=== PATIENT | male | born 1950 | race Caucasian/White ===

== ENCOUNTER 2016-03-29 05:21 | Inpatient (IN) | payer OTHER ==
[2016-03-05 10:09] VITALS: BMI 40.0
--- NOTE | 2016-03-05 10:50 | PAT Medication Instructions ---
Service Date Mar 05, 2016. Current Home Medication List Aspirin (Aspirin), 325 MG PO 2XWEEK Krill Oil (Megared [place]-3 Krill Oil 500 mg), 1 TAB PO QAM [Carvedilol], 1 TAB PO BID [Lisinopril], 1 TAB PO BID [Sinutab], 1 TAB PO PRN Medication Instructions For Your Scheduled Surgery - Instructions to be given by surgeon: Aspirin (Aspirin), 325 MG PO 2XWEEK - Hold the following medications 2 weeks prior to surgery: Krill Oil (Megared [place]-3 Krill Oil 500 mg), 1 TAB PO QAM - Hold the following medications 24 hours prior to surgery: [Lisinopril], 1 TAB PO BID - Hold the following medications the morning of surgery: [Sinutab], 1 TAB PO PRN - Take the following medications the morning of surgery with a sip of water OTHERWISE NOTHING TO EAT OR DRINK AFTER MIDNIGHT: [Carvedilol], 1 TAB PO BID - Take the following medications as scheduled the night before surgery: [Carvedilol], 1 TAB PO BID If you have any questions please call us at [phone] (Kayla Soriano PA-C ) or [phone] or [phone]
--- NOTE | 2016-03-05 11:22 | DIAGNOSTIC IMAGING REPORT ---
TWO VIEW CHEST CLINICAL HISTORY: Preoperative examination. FINDINGS: PA and lateral chest radiographs are obtained. No prior studies are available for comparison at the time of dictation. The heart is top normal for projection. The mediastinal contour is within normal limits. There is mild bibasilar atelectasis. The lungs and pleural spaces are otherwise clear. There is no pneumothorax. The skeletal structures appear osteopenic. Degenerative change is noted throughout the thoracic spine. IMPRESSION: No active disease in the chest. Electronically signed by: Dexter Rosales M.D. 03/05/2016 11:21 AM
[2016-03-05 12:16] LABS: BASO % 0.7 %; BASO ABS # 0.04 K/uL (0-0.2); COMPLETE YES; EOS % 10.7 %; IG% 0.2 %; LYMPH % 35.1 %; LYMPH ABS # 2.16 K/uL (1.2-3.4); MEAN CELL VOLUME 86.4 fL (80-100); MEAN CORPUSCULAR HEMOGLOBIN 29.5 pg (25-34); MEAN CORPUSCULAR HGB CONC 34.1 g/dl (32-36); MEAN PLATELET VOLUME 10.2 fL (7.4-10.4); MONO % 11.9 %; NEUT % 41.4 %; PLATELET COUNT 196 K/uL (130-400); RED BLOOD COUNT 5.09 M/uL (4.7-6.1); WHITE BLOOD COUNT 6.15 K/uL (4.8-10.8)
[2016-03-05 12:16] LABS: URINE APPEARANCE CLEAR (CLEAR); URINE BILIRUBIN NEG (NEG); URINE COLOR YELLOW; URINE NITRITE NEG (NEG); URINE PH 7.5 (4.5-7.5); URINE SPECIFIC GRAVITY 1.022 (1.000-1.030); UROBILINOGEN NEG (NEG)
[2016-03-05 12:46] LABS: MANUAL MICROSCOPIC REQUIRED? NO; REVIEW REQ? NO
[2016-03-05 12:50] LABS: BUN/CREATININE RATIO 15.7 (10-20); CREATININE 0.85 mg/dl (0.60-1.40)
[2016-03-29] VITALS (9 sets, daily range): BP systolic 138–166; BP diastolic 68–95; PULSE 72–98; TEMP 36.4–36.8; O2SAT 94–97; Ht 180.3 cm; Wt 132.4 kg
[~2016-03-29] VITALS: Ht 180.3 cm; Wt 132.4 kg
[~2016-03-29 05:21] MED LIST: ASPI325T45 PO; CARVEDILOL PO; KRIL1CAP18 PO; LISIPOW PO; SINUTAB PO
[2016-03-29] MEDS ORDERED: DEXT30TA7 PO (05:59)
[2016-03-29] MEDS ORDERED: LISI-787 PO (05:59)
[2016-03-29] MEDS ORDERED: CeleBREX 200 MG CAP PO SCH (06:00)
[2016-03-29] MEDS ORDERED: MULT-506 PO (06:00)
[2016-03-29] MEDS ORDERED: CALC500C70 PO (06:00)
[2016-03-29] MEDS ORDERED: PREGABALIN 75 MG CAP PO SCH (06:00)
[2016-03-29] MEDS ORDERED: LACTATED RINGER'S 1000ML IV SCH (06:00)
[2016-03-29] MEDS ORDERED: CEFAZOLIN 3000 MG/65 ML D5W 65 ML IV SCH (06:00)
[2016-03-29] MEDS ORDERED: KETAMINE HCL INJ 50 MG/ML 10 ML VIAL ONE (06:47)
[2016-03-29] MEDS ORDERED: HYDROmorphone INJ 2 MG/ML SYR/VIAL ONE (06:47)
[2016-03-29] MEDS ORDERED: FENTANYL CITRATE INJ 50 MCG/1 ML 2 ML VIAL ONE (06:47)
[2016-03-29] MEDS ORDERED: MIDAZOLAM HCL 1 MG/ML 2ML VIAL ONE (06:47)
[2016-03-29] MEDS ORDERED: MoRPHine SULFATE 10 MG/ML CARP/VIAL IV PRN (07:15)
[2016-03-29] MEDS ORDERED: ATROPINE SULFATE 0.1 MG/ML 5ML SYR IV PRN (07:15)
[2016-03-29] MEDS ORDERED: ONDANSETRON INJ 2 MG/ML 2 ML VIAL IV PRN ×2 (07:15→10:45)
[2016-03-29] MEDS ORDERED: PHENYLEPHRINE 1% NA SPR 15 ML BTL ONE (07:15)
[2016-03-29] MEDS ORDERED: EpHEDrine SULFATE INJ 50 MG/ML AMP IV PRN (07:15)
[2016-03-29] MEDS ORDERED: FENTANYL CITRATE INJ 50 MCG/1 ML 2 ML VIAL IV PRN (07:15)
--- NOTE | 2016-03-29 07:35 | History and Physical ---
History & Physical Date Mar 29, 2016. Chief Complaint LBP and left leg pain History of Present Illness The patient is a 65 year old male with complaints of above who failed outpatient management. no R leg symptoms. MRI shows R L4-5 foraminal stenosis. no weakness. cleared by pcp for surgery Past Medical/Surgical History HTN AR OA prostate CA prostactectomy hernia repair hi chol obesity prior tobacco Additional History Hepatic Disease: No Endocrine Disorder: No Kidney Disease: No Hypertension: Yes Heart Disease: Yes Bleeding Tendencies: No Infectious Diseases: No Allergies Coded Allergies: No Known Allergies (Unverified , 03/29/16) Home Medications Scheduled Aspirin (Aspirin), 325 MG PO 2XWEEK Calcium/Vitamin D (Os-Yossi 500 Plus D), 1 TAB PO DAILY Krill Oil (Megared [place]-3 Krill Oil 500 mg), 1 TAB PO QAM Lisinopril/Hctz (Zestoretic 20MG/12.5MG), 1 TAB PO BID Multivitamin (Multivitamin), 1 TAB PO DAILY [Carvedilol], 1 TAB PO BID [Sinutab], 1 TAB PO PRN Scheduled PRN Dextromethorphan-Guaifenesin (Mucinex Dm), 1 TAB PO Q12 PRN for Cough Physical Examination Skin: warm/dry Eyes: normal inspection, sclerae normal ENT: normal ENT inspection Head: normocephalic, atraumatic Neck: supple, trachea midline Respiratory/Chest: lungs clear, no respiratory distress Cardiovascular: regular rate, rhythm Back: normal inspection Extremities: normal inspection, normal range of motion Neurologic/Psych: no motor/sensory deficits, alert, normal reflexes, oriented x 3 Diagnosis L4-5 stenosis Plan of Treatment L4-5 decompression/fusion
[2016-03-29] MEDS ORDERED: BUPIVACAINE/EPINEPHRINE 0.5% MPF 1:200,000 30 ML VIAL INJ ONE (08:46)
[2016-03-29] MEDS ORDERED: LIDOCAINE HCL 2% 2 ML VIAL (20MG/ML) ONE (08:59)
[2016-03-29] MEDS ORDERED: DEXAMETHASONE SOD INJ 4 MG/ML VIAL ONE (08:59)
[2016-03-29] MEDS ORDERED: ONDANSETRON INJ 2 MG/ML 2 ML VIAL ONE (08:59)
[2016-03-29] MEDS ORDERED: PROPOFOL IV EMULSION 10 MG/ML 20 ML VIAL IV ONE (08:59)
[2016-03-29] MEDS ORDERED: NEOSTIGMINE METHYLSULFATE 1 MG/ML 10ML VIAL ONE (08:59)
[2016-03-29] MEDS ORDERED: GLYCOPYRROLATE INJ 0.2 MG/ML VIAL ONE (08:59)
[2016-03-29] MEDS ORDERED: ROCURONIUM BROMIDE 10 MG/ML 5 ML VIAL ONE (08:59)
[2016-03-29] MEDS ORDERED: VASOPRESSIN 20 UNIT/ML VIAL ONE (08:59)
[2016-03-29] MEDS ORDERED: PHENYLEPHRINE 100MCG/ML 5ML SYR ONE (08:59)
[2016-03-29] MEDS ORDERED: EpHEDrine SULFATE 50MG/5ML SYR ONE (08:59)
[2016-03-29] MEDS ORDERED: BACITRACIN 50000 UNIT VIAL IR ONE (09:42)
[2016-03-29] MEDS ORDERED: DURASEAL DURAL SEALANT 5ML TOP ONE (09:42)
[2016-03-29] MEDS ORDERED: THROMBIN 5000 UNITS KIT TOP ONE (09:55)
[2016-03-29] MEDS ORDERED: FLOSEAL HEMOSTATIC MATRIX 10ML TOP ONE (09:55)
[2016-03-29] MEDS ORDERED: THROMBIN FOR SOLN 20000 UNIT KIT TOP ONE (09:55)
[2016-03-29] MEDS ORDERED: OXYC-57 PO (10:04)
--- NOTE | 2016-03-29 10:05 | Discharge Instructions ---
Discharge Instructions Admission Reason for Admission: Lumbar Spinal Stenosis Discharge Discharge Diagnosis / Problem: Lumbar Stenosis Discharge Goals Goal(s): Decrease discomfort, Improve function, Increase independence Activity Recommendations Activity Limitations: as noted below Lifting Limitations: none Exercise/Sports Limitations: until after follow-up appointment May Resume Sexual Activity: after follow-up appointment Shower/Bathe: may shower/bathe in 3 days . Instructions / Follow-Up Instructions / Follow-Up ACTIVITY RECOMMENDATIONS: SELF CARE INSTRUCTIONS AFTER THORACIC/LUMBAR FUSIONS 1. You may walk to your tolerance. It is good exercise for your legs and back. Expect some back and intermittent leg aches and pains. 2. You may perform "counter-top" level activities (make a sandwich, chantell with a project, etc.). 3. No bending or lifting of more than 10 pounds or back twisting of any nature (roll like a log when turning in bed). 4. You may ride in a car for 20-30 minutes at a time. No driving until after your first visit with your doctor. 5. Frequent changes of position and restricting sitting to 30 minutes at a time will help limit the amount of back spasms and stiffness you may experience. 6. You may discontinue the use of ambulatory aids (cane, crutches, etc.) once your strength and confidence allow. 7. You may fiber optic central office installer the shower and let water strike your incision when you arrive home at least once daily. Do not take a tub bath, sit in a hot tub or go into a swimming pool until after your first recheck in the office. SPECIAL CARE INSTRUCTIONS: VERY IMPORTANT TO READ AND REVIEW A. Your surgical incision has been closed with a cosmetic suture under the skin that will dissolve in about 6 weeks. In 14 days, you can use a pair of clean scissors and cut the suture that is left outside of the skin at the ends of your incision. 1. The small skin tapes can be removed 7 days after surgery if they have not fallen off by that point. 2. You may keep the wound open to air as much as possible to promote healing after post-op day number 5 unless told otherwise by your doctor. 3. If you think the wound looks like it is becoming infected (redness or worsening drainage) and/or you are experiencing fever, chill or worsening back pain and muscle spasms, contact the office so that we may evaluate you as soon as possible. B. Complications are uncommon, but please contact us if you have any signs or symptoms of: 1. wound infection (fever higher than 102.5 degrees F, redness, separation of wound, drainage, or increasing pain from the incision) 2. blood clots in legs (pain, swelling, redness and warmth in legs) 3. urinary tract infection (fever higher than 102.5 degrees F, burning upon urination or increased frequency of urination) 4. nerve problems (inability to walk on your toes or heels, numbness, loss of bowel or bladder control) 5. any other symptoms that concern you C. Please call the office at if you have any concerns or questions about your operation or recovery. D. No smoking! Smoking drastically decreases the chance of a solid fusion. E. Do not take any anti-inflammatory medications (Indocin, Advil, Motrin, Aspirin, Naprosyn, etc.) as these may inhibit the chance of a solid fusion. Tylenol is okay to take for pain. MANAGING PAIN AFTER SPINAL SURGERY 1. Narcotic medication is intended for short-term use and will be provided for surgical pain. Surgical pain usually lasts for a period of 4-6 weeks. Narcotic medication includes Percocet, Vicodin, Darvocet, Tylenol #3 or Lortab. 2. Longer-term pain is more appropriately treated with non-narcotic medication such as Tylenol ES. 3. Muscle spasm is not appropriately treated with narcotics. Muscle relaxers such as Soma, Flexeril or Skelaxin can be used along with Tylenol ES. 4. Remember that we all live with some "aches and pains". This is not unusual or uncommon after an injury or as we get older. a. Back pain is expected and may include muscle spasms for 4 to 6 weeks after surgery. The pain should gradually improve. If the pain worsens for no apparent reason, please contact the office. b. Intermittent leg pain may also be experienced and should not be concerned about unless it worsens for no apparent reason. If so, please contact the office. 5. We will provide appropriate medication within the normal guidelines of their prescribed use. We will also be very cautious and aware of potential abuse and extended duration of patients' medication needs. a. Pain medications are for your comfort and to assist with sleep and rest so that the tissue can heal. They are not provided in order to return to normal activity and should not be used through the day. To do so or worsening pain at night can result from ongoing tissue damage and development of tolerance to the prescribed medicine. 6. Please allow 2-3 days to process refills. Prescriptions will not be mailed but must be picked up at the office. FOLLOW UP VISIT: Keep your scheduled follow-up appointment. Any questions, please call the office at . Current Hospital Diet Patient's current hospital diet: Discharge Diet Recommended Diet: Regular Diet Procedures Procedures Performed: L4-L5 Decompression and Instrumented Fusion, Interbody Fusion with Application of Interbody Cage at L4-L5; Bone Marrow Aspirate with use of Arteriocyte Pending Studies Studies pending at discharge: no Medical Emergencies . Who to Call and When: Medical Emergencies: If at any time you feel your situation is an emergency, please call 911 immediately. . Non-Emergent Contact Non-Emergency issues call your: Surgeon Call Non-Emergent contact if: temperature is above 101, your pain is not controlled, your pain is worsening, your pain is unusual for you, your pain is concerning you, wound has increased drainage, wound has increased redness, wound has increased pain, you have any medication questions . "Provider Documentation" section prepared by Dixon Figueroa. VTE Core Measure Inpt VTE Proph given/why not?: Shawna Martin
--- NOTE | 2016-03-29 10:22 | DIAGNOSTIC IMAGING REPORT ---
INTRAOPERATIVE FLUOROSCOPIC IMAGES OF THE LUMBAR SPINE CLINICAL HISTORY: L4-L5 decompression and fusion. COMPARISON STUDY: No previous studies for comparison. Fluoroscopy time: 12 seconds. FINDINGS: These 2 fluoroscopic images demonstrate an L4-L5 discectomy with interbody spacer placement. There are bilateral pedicle screws at the L4 and L5 levels with interconnecting rods. IMPRESSION: Fluoroscopic images demonstrating an L4-L5 discectomy and bilateral pedicle screw fusion. Electronically signed by: Liam Godinez M.D. 03/29/2016 10:21 AM Dictated Date/Time: 03/29/2016 10:20 AM
[2016-03-29] MEDS ORDERED: SODIUM CHLORIDE 0.9% 1000ML 1,000 ML IV SCH (10:40)
--- NOTE | 2016-03-29 10:40 | [facility] Post Operative Brief Note ---
Immediate Operative Summary Operative Date Mar 29, 2016. Pre-Operative Diagnosis L4-L5 Lumbar Stenosis Post-Operative Diagnosis Same as preoperative Procedure(s) Performed L4-L5 Decompression and Instrumented Fusion, Interbody Fusion with Application of Interbody Cage at L4-L5; Bone Marrow Aspirate with use of Arteriocyte Surgeon Dr. John Wu Sole Ruffer Surgeon(s) Ollie Figueroa PA-C Estimated Blood Loss 350ml Findings dict Specimens None per surgeon
[2016-03-29] MEDS ORDERED: HYDROmorphone HCL 0.5MG/ML 50 ML CASSETTE ONE (10:44)
[2016-03-29] MEDS ORDERED: NALOXONE HCL 0.4 MG/1 ML VIAL/CARP IV PRN ×2 (10:45)
[2016-03-29] MEDS ORDERED: FAMOTIDINE 20 MG TAB PO PRN (10:45)
[2016-03-29] MEDS ORDERED: PROMETHAZINE HCL INJ 12.5 MG in SODIUM CHLORIDE 0.9% 50ML 50 ML IV PRN (10:45)
[2016-03-29] MEDS ORDERED: LORAZEPAM INJ 0.5 MG in SYRINGE 0 ML IV PRN (10:45)
[2016-03-29] MEDS ORDERED: METOCLOPRAMIDE HCL INJ 5 MG/ML 2 ML VIAL IV PRN (10:45)
[2016-03-29] MEDS ORDERED: ACETAMINOPHEN IV 100 ML IV PRN (10:45)
[2016-03-29] MEDS ORDERED: HYDROmorphone INJ 1 MG/ML SYR IV PRN (10:45)
[2016-03-29] MEDS ORDERED: MAGNESIUM HYDROXIDE SUSP 30 ML UDC PO PRN (10:45)
[2016-03-29] MEDS ORDERED: ALUMINUM/MAGNESIUM SUSP 30 ML UDC PO PRN (10:45)
[2016-03-29] MEDS ORDERED: hydrOXYzine HCL 25 MG TAB PO PRN (10:45)
[2016-03-29] MEDS ORDERED: LORAZEPAM 0.5 MG TAB PO PRN (10:45)
[2016-03-29] MEDS ORDERED: SOD PHOSPHATE/SOD BIPHOSPHATE ENEMA 132 ML BTL PR PRN (10:45)
[2016-03-29] MEDS ORDERED: BISACODYL 10 MG SUPP PR PRN (10:45)
--- NOTE | 2016-03-29 11:05 | Anesthesiology Progress Note ---
Anesthesia Post Op Note Date & Time Mar 29, 2016 at 11:04 Vital Signs Pain Intensity: 3 Vital Signs Past 12 Hours Date Time Temp Pulse Resp B/P Pulse Ox O2 Delivery O2 Flow Rate FiO2 03/29/16 10:55 71 16 133/87 97 Nasal Cannula 4 03/29/16 10:45 68 16 155/79 97 Nasal Cannula 4 03/29/16 10:35 69 16 121/80 96 Mask 10 03/29/16 10:25 72 16 113/98 97 Mask 10 03/29/16 10:19 37.1 69 16 118/83 99 Mask 10 03/29/16 06:07 36.8 72 20 166/74 94 Room Air Notes Mental Status: alert / awake / arousable, participated in evaluation Pt Amnestic to Procedure: Yes Nausea / Vomiting: adequately controlled Pain: adequately controlled Airway Patency, RR, SpO2: stable & adequate BP & HR: stable & adequate Hydration State: stable & adequate Anesthetic Complications: no major complications apparent
[2016-03-29] MEDS ORDERED: LARYING-O-JET KIT (LTA) EXT ONE ×2 (11:13)
[2016-03-29] MEDS: LACTATED RINGER'S 1000ML 1,000 ML IV SCH (12:24)
[2016-03-29] MEDS ORDERED: PNEUMOCOCCAL POLYSACCHARIDES 25 MCG/0.5 ML VIAL/SYR IM. ONE (15:00)
[2016-03-29] MEDS ORDERED: PNEUMOCOCCAL ADMINISTRATION CHARGE ONE (15:00)
[2016-03-29] MEDS: HYDROmorphone HCL 0.5MG/ML 50 ML CASSETTE IV PRN ×2 (15:03→23:01)
[2016-03-29] MEDS ORDERED: INFLUENZA VIRUS QUAD VACCINE 0.5 ML SYR IM. ONE (15:15)
[2016-03-29] MEDS ORDERED: INFLUENZA ADMINISTRATION CHARGE ONE (15:15)
[2016-03-29] MEDS: DEXAMETHASONE INJ 6 MG in SYRINGE 0 ML IV SCH (17:22)
[2016-03-29] MEDS: CEFAZOLIN IV 2,000 MG in DEXTROSE 5% 50ML 50 ML IV SCH (17:22)
[2016-03-29] MEDS ORDERED: LISINOPRIL/HCTZ 20/12.5MG TAB PO SCH (21:00)
[2016-03-29] MEDS ORDERED: CARVEDILOL 25 MG TAB PO SCH (21:00)
[2016-03-29] MEDS: DOCUSATE SODIUM/SENNA 50/8.6MG TAB PO SCH (21:00)
[2016-03-30] VITALS (8 sets, daily range): BP systolic 116–168; BP diastolic 62–75; PULSE 79–91; TEMP 36.5–37.2; O2SAT 92–96
[2016-03-30] MEDS: CEFAZOLIN IV 2,000 MG in DEXTROSE 5% 50ML 50 ML IV SCH (00:13)
[2016-03-30] MEDS: DEXAMETHASONE INJ 6 MG in SYRINGE 0 ML IV SCH ×2 (00:14→07:46)
[2016-03-30] MEDS: LACTATED RINGER'S 1000ML 1,000 ML IV SCH (00:14)
[2016-03-30] MEDS ORDERED: DC PCA ONE (06:00)
[2016-03-30 06:11] LABS: COMPLETE YES; HEMATOCRIT 36.3 % (42-52); IG% 0.3 %; LYMPH % 6.3 %; LYMPH ABS # 1.28 K/uL (1.2-3.4); MEAN CELL VOLUME 84.4 fL (80-100); MEAN CORPUSCULAR HEMOGLOBIN 30.5 pg (25-34); MEAN CORPUSCULAR HGB CONC 36.1 g/dl (32-36); MEAN PLATELET VOLUME 10.4 fL (7.4-10.4); MONO % 5.7 %; NEUT % 87.7 %; PLATELET COUNT 175 K/uL (130-400)
[2016-03-30 06:42] LABS: BUN/CREATININE RATIO 14.9 (10-20); CALCIUM 8.5 mg/dl (8.5-10.1); CREATININE 0.87 mg/dl (0.60-1.40)
[2016-03-30] MEDS: OXYCODONE HCL IR 5 MG TAB (IMMEDIATE RELEASE) PO PRN ×3 (07:56→21:12)
[2016-03-30] MEDS ORDERED: NURSING VERBAL MED ORDER ONE (08:00)
--- NOTE | 2016-03-30 08:26 | Anesthesiology Progress Note ---
Anesthesia Post Op Note Date & Time Mar 30, 2016 at 08:25 Vital Signs Pain Intensity: 3.0 Vital Signs Past 12 Hours Date Time Temp Pulse Resp B/P Pulse Ox O2 Delivery O2 Flow Rate FiO2 03/30/16 08:17 96 Room Air 03/30/16 08:02 Room Air 03/30/16 07:40 36.8 84 20 138/64 96 Room Air 03/30/16 03:45 36.5 85 16 116/62 95 Room Air 03/30/16 00:30 Nasal Cannula 2.0 03/29/16 23:17 36.5 98 16 138/68 94 Nasal Cannula 2.0 Notes Mental Status: alert / awake / arousable, participated in evaluation Pt Amnestic to Procedure: Yes Nausea / Vomiting: improving with treatment (pt c/o nausea and vomitting x 3 yesterday. reports feels better this morning) Pain: adequately controlled Airway Patency, RR, SpO2: stable & adequate BP & HR: stable & adequate Hydration State: stable & adequate Anesthetic Complications: no major complications apparent
[2016-03-30] MEDS: DOCUSATE SODIUM/SENNA 50/8.6MG TAB PO SCH (21:10)
[2016-03-31] MEDS ORDERED: POLYETHYLENE (MIRALAX) 17 GM PACK PO SCH (06:00)
[2016-03-31 06:02] VITALS: BP 150/78; PULSE 77; TEMP 36.9; O2SAT 97
[2016-03-31] MEDS: OXYCODONE HCL IR 5 MG TAB (IMMEDIATE RELEASE) PO PRN (07:34)
[2016-03-31 09:27] VITALS: BP 150/78; PULSE 77; TEMP 36.9; O2SAT 97
--- NOTE | 2016-04-02 00:33 | DISCHARGE SUMMARY ---
PRINCIPAL DIAGNOSIS: L4-L5 spinal stenosis. POSTOPERATIVE DIAGNOSIS: Same. PROCEDURE: L4-L5 decompression and fusion procedure. SURGEON: Dr. John Wu. INSTRUCTIONAL SUPERVISOR: Dixon Figueroa PA-C. HISTORY OF PRESENT ILLNESS: Please refer to EMR. HOSPITAL COURSE: On March 29, Mr. Gooden was admitted to [facility] with the above diagnosis. He was taken to preoperative holding where he was identified, evaluated and cleared for surgical procedure. He was transported to the operating room, introduced with general endotracheal anesthesia, sterile conditions were set and he successfully underwent the above procedure without complication or issue. He was awakened in stable and satisfactory condition and transported to postoperative recovery where his pain was monitored and managed. He was then taken to the orthopedic floor for continued care. Throughout his stay, labs, vitals and pain were monitored and managed. He had no complications or issues. He participated in physical therapy with good noted progress. APOLINAR output significantly diminished. DVT and GI prophylactic measures were taken. He was evaluated on the morning of March 31 and indicated for return home. On this date, he was discharged from [facility]. DISPOSITION: Home. DISPOSITION CONDITION: Stable. NOTED COMPLICATIONS OR ISSUES: Zero. DISCHARGE INSTRUCTIONS: Please refer to EMR.
--- NOTE | 2016-04-05 14:22 | OPERATIVE REPORT ---
DATE OF OPERATION: 03/29/2016 PREOPERATIVE DIAGNOSIS: L4-L5 spinal stenosis and spondylolisthesis. POSTOPERATIVE DIAGNOSIS: Same. PROCEDURES: 1. L4 laminectomy with bilateral medial facetectomies L4-L5. 2. Nonsegmental pedicle screw instrumentation -- bilateral L4 and L5 with K2M [place] pedicle screws. 3. Posterior lateral fusion L4-L5 -- bilateral with Infuse BMP on a collagen sponge, tricalcium phosphate, local bone, bone putty and bone marrow aspirate. 4. Left L4-L5 transforaminal lumbar interbody fusion with K2M titanium mesh interbody cage, local bone and bone putty as well as small strip of Infuse BMP. 5. Right iliac crest bone marrow aspiration, stem cell concentration with Arteriocyte. ANESTHESIA: General endotracheal anesthesia. COMPLICATIONS: None. ESTIMATED BLOOD LOSS: Per anesthesia record. SURGEON: Dr. Wu. PAD MACHINE OPERATOR: Dixon Figueroa PA-C. Please note he participated in all portions of the procedure and was critical for performance of the procedure, participated in positioning, prepping, draping, retraction, wound closure. PROCEDURE IN DETAIL: After identification of patient and operative level, he was brought to the OR where he underwent induction of general anesthesia. He was then positioned prone on Reji OR table with all bony prominences well padded. Care was taken to avoid pressure on the periorbital area. Lumbosacral area was sterilely prepped and draped in usual fashion. Antibiotics were administered. Time-out was performed. Level was confirmed and skin incision was localized with lateral fluoroscopy and a spinal needle. I infiltrated the skin with 0.5% Marcaine with epinephrine, made skin incision from spinous process of L3-L5, exposed the posterior elements, placed Gelpi retractors and confirmed level with fluoroscopy. I then did a midline decompression with L4 laminectomy and removal of the ligamentum flavum and completed decompression with removal of the medial facets as necessary to decompress the lateral recess. I completed decompression with Kerrisons and palpated the nerve roots decompressed at L4 and L5 bilaterally. I then placed pedicle screws bilaterally at L4 and L5 with K2M [place] pedicle screws and confirmed screw position with fluoroscopy. The screws had good purchase. I then did a complete discectomy from the left side at L4-L5 after mobilizing the nerve root with a nerve root retractor. I prepared the disc space with deann and curettes for subsequent cage introduction. I packed the disc space with local bone, bone putty and bone marrow aspirate. Bone marrow aspirate was obtained from the right iliac crest via separate stab incision with a Jamshidi needle and concentrated with the Arteriocyte system. I filled the cage with the same and a small amount of Infuse BMP on a collagen sponge. I then tamped the cage into position, I had good stability and restored disc height nicely. I then lowered the Manuel frame and applied rods and end caps, final tightened. I irrigated with bacitracin solution, applied DuraSeal over the annulotomy and then decorticated the transverse process of L4 and L5 with high speed david as well as the facets at L4-5. I then packed the lateral gutters bilaterally with the bone graft mixture as above. We then closed in layered fashion over APOLINAR drain. All sponge and needle counts were correct at the end of the case. I attest to the content of the Intraoperative Record and any orders documented therein. Any exceptio ns are noted below.
== END 2016-03-31 11:41 | disposition home or self-care (01) | DRG 460 ==
LOC: ENRESERVDT → ENRESERVTM → C.ACU 05:21 → C.3E 07:30
PROVIDERS: ADMIT Orthopaedic Surgery Orthopaedic Surgery of the Spine; ATTEND Orthopaedic Surgery Orthopaedic Surgery of the Spine
PROC: 0SG00AJ Fusion of Lumbar Vertebral Joint with Interbody Fusion Device, Posterior Approach, Anterior Column, Open Approach (ICD-10-PCS; principal; 2016-03-29 07:30)
PROC: 07DR3ZZ Extraction of Iliac Bone Marrow, Percutaneous Approach (ICD-10-PCS; principal; 2016-03-29 07:30)
PROC: 0SG0071 Fusion of Lumbar Vertebral Joint with Autologous Tissue Substitute, Posterior Approach, Posterior Column, Open Approach (ICD-10-PCS; principal; 2016-03-29 07:30)
PROC: 3E0U0GB Introduction of Recombinant Bone Morphogenetic Protein into Joints, Open Approach (ICD-10-PCS; principal; 2016-03-29 07:30)
PROC: 0ST20ZZ Resection of Lumbar Vertebral Disc, Open Approach (ICD-10-PCS; principal; 2016-03-29 07:30)
DX: M48.06 Spinal stenosis, lumbar region (principal); Z68.41 Body mass index [BMI] 40.0-44.9, adult; I10 Essential (primary) hypertension; E78.00 Pure hypercholesterolemia, unspecified; K21.9 Gastro-esophageal reflux disease without esophagitis; M19.90 Unspecified osteoarthritis, unspecified site; E66.01 Morbid (severe) obesity due to excess calories; I25.2 Old myocardial infarction; Z23 Encounter for immunization; Z87.891 Personal history of nicotine dependence; Z79.82 Long term (current) use of aspirin; Z79.899 Other long term (current) drug therapy

== ENCOUNTER 2018-07-29 06:00 | Inpatient (IN) ==
--- NOTE | 2018-07-07 08:59 | PAT Medication Instructions ---
Medication Instructions Date of Service July 07, 2018 Home Medications Mark Red 1 - 2 tab PO DAILY carvedilol 25 mg PO BID fluticasone propionate [Flonase] 1 - 2 spray INTRANASAL DAILY lisinopril-hydrochlorothiazide 1 tab PO BID multivitamin [Multiple Vitamins] 1 tab PO DAILY vitamin B complex 1 cap PO DAILY STOP taking 2 weeks before surgery Mark Red 1 - 2 tab PO DAILY If surgery is within 2 weeks, stop taking as soon as possible. DO NOT take the morning of surgery lisinopril-hydrochlorothiazide 1 tab PO BID multivitamin [Multiple Vitamins] 1 tab PO DAILY vitamin B complex 1 cap PO DAILY Take morning of surgery With a small sip of water, OTHERWISE NOTHING TO EAT OR DRINK AFTER MIDNIGHT: carvedilol 25 mg PO BID fluticasone propionate [Flonase] 1 - 2 spray INTRANASAL DAILY Take evening before surgery carvedilol 25 mg PO BID fluticasone propionate [Flonase] 1 - 2 spray INTRANASAL DAILY lisinopril-hydrochlorothiazide 1 tab PO BID Other Notes If you have any questions please call us at [phone] or [phone] or [phone] or [phone]
--- NOTE | 2018-07-07 12:38 | Anesthesiology Consultation ---
Date of Service July 07, 2018 Assessment & Plan (1) Encounter for pre-operative examination: *H/O DIFFICULT INTUBATION* *CAUTION--LOOSE UPPER CENTRAL INCISOR* Patient sent for cardiology clearance (ESTEBAN Belle) by PCP for abnormal EKG. Cardiology performed pharmacologic stress test for ischemic evaluation. Per cardiology 07/22, "Low to moderate risk" for surgery. Chart Review Chart Review: Acceptable Risk for Surgery and Patient seen in Pre Admission Testing Teaching & Discussion Instructed NPO after midnight before surgery, except medications with 15 cc of water. Medication instructions provided according to the PAT guidelines. History Surgery Operation Date: 07/23/18 07:45 Proposed Procedures p L4-L5 Removal of Hardware, L2-S1 Decompression and Fusion - Mir Weldon DO Operation Date: 07/29/18 10:25 Proposed Procedures p L4-L5 Removal of Hardware, L2-S1 Decompression and Fusion - Mir Weldon DO Height/Weight Height: 5 ft 11 in Weight: 133.3 kg Allergies Allergy/AdvReac Type Severity Reaction Status Date / Time No Known Allergies Allergy Verified 07/07/18 12:43 Medications Home Medications Medication Instructions Recorded Confirmed Last Taken Mark Red 1 - 2 tab PO DAILY 07/01/18 07/01/18 Unknown carvedilol 25 mg PO BID 07/01/18 07/01/18 07/01/18 fluticasone propionate [Flonase 1 - 2 spray INTRANASAL DAILY 07/01/18 07/01/18 Unknown Allergy Relief] lisinopril-hydrochlorothiazide 1 tab PO BID 07/01/18 07/01/18 07/01/18 multivitamin [Multiple Vitamins] 1 tab PO DAILY 07/01/18 07/01/18 Unknown vitamin B complex 1 cap PO DAILY 07/01/18 07/01/18 Unknown Past Medical History Medical History Abnormal EKG Patient was told he "may have had a heart attack" with past EKG (> 10 yrs ago). PCP reviewed, has never followed with cardio. EKG does show "possible inferior infarct" since at least 2015 per [facility] EKG records. Difficult airway for intubation 03/29/16 lumbar decompression @ [facility] -- GLIDESCOPE # 4 AFTER ATTEMPTS WITH MAC 4 AND SANDOVAL 3. History of prostate cancer S/P PROSTATECTOMY 2008 Hypertension SOB (shortness of breath) on exertion CLIMBING 10 STAIRS, DEPENDS ON HOW FAST Sleep apnea CPAP Spinal stenosis Past Family History Family History Other Family history of cancer Past Surgical History Surgical History History of arthroscopy of left knee X2 History of arthroscopy of right knee History of carpal tunnel release of both wrists History of colonoscopy History of incisional hernia repair History of lumbar fusion L4-5 History of prostatectomy History of shoulder surgery LEFT Past Anesthesia History Difficult Airway and No Family Hx of Anesthesia Complications WHEN INTUBATED FOR SHOULDER SURGERY 1 YR AGO ([facility]) ETT LOOSENED UPPER R INCISOR -- TOOTH IS STILL LOOSE. H/O GLIDESCOPE INTUBATION, [facility] 2017. History of PONV No Motion Sickness Screening History of Motion Sickness: No Social History Smoking Status: Former smoker tobacco type: cigarettes and e-cigarettes Do You Dip or Chew Tobacco: No Smoking End Date: QUIT 4 YR AGO/E CIGARETTES QUIT 2 MONTHS Hx Alcohol Use: Yes Alcohol type: beer alcohol intake frequency: a few times a week substance use type: marijuana (OCCASIONALLY) Last Used Substance Other:: 1 WEEK AGO Exercise / Class Metabolic Activity III < 4 Walking/Shop/Light housework (LIMITED BY BACK PAIN BUT DOES STAIRS DAILY AT HOME WITH SOME SOB, DENIES CP) Review of Systems Pt denies any recent chest pain, shortness of breath, palpitations, cough, fever or URI. +chronic mild cough with post nasal drip/congestion (likely 2/2 allergies) Physical Exam Vital Signs BP: 179/92 (pt evaluated by cardio 07/15, BP 149/76) P: 64bpm SPO2: 95% RA T: 97.7 F R: 18 ENMT Mouth: + dentures (upper and lower partial) and + loose teeth (one loose upper R incisor); no chipped teeth Thyromental Distance: < 3.5 Finger Breadths (3? difficult to palpate 2/2 thick neck) Mallampati Class: IV Neck + short neck, + thick neck (VERY) and + facial hair (trimmed goatee); neck extension not limited Respiratory normal respiratory effort Auscultation: lungs clear to auscultation bilaterally Cardiovascular Rate/Rhythm: regular rate and regular rhythm Heart Sounds: no murmur Vessels: no carotid bruit Extremities: no edema Testing Electrocardiogram Date: 07/07/18 Findings: + NSR @ (63) and + RBBB Possible inferior infarct (cited on or before 03/05/16). Chest X-Ray Date: 07/07/18 Findings: + NAD Stress Test Date: 07/21/18 Type: nuclear Resting EF: 55% Conclusion: Normal nuclear part of Lexiscan nuclear stress test. No evidence of ischemia or infarction. Normal LVEF and normal wall motion. Laboratory Results 07/07/18 12:49 07/07/18 12:49 Blood Type A Positive 07/07/18 12:49 Antibody Screen NEGATIVE 07/07/18 12:49 PT 11.0 Seconds (9.0-12.0) 07/07/18 12:49 INR 1.1 (0.9-1.1) 07/07/18 12:49 APTT 25.0 Seconds (21.0-31.0) 07/07/18 12:49 Urine Color Yellow 07/07/18 12:49 Urine Appearance Clear (Clear) 07/07/18 12:49 Urine pH 5.0 (4.5-7.5) 07/07/18 12:49 Ur Specific [place] 1.019 (1.000-1.030) 07/07/18 12:49 Urine Protein Negative (Negative) 07/07/18 12:49 Urine Glucose (UA) Negative (Negative) 07/07/18 12:49 Urine Ketones Negative (Negative) 07/07/18 12:49 Urine Nitrite Negative (Negative) 07/07/18 12:49 Ur Leukocyte Esterase Negative (Negative) 07/07/18 12:49
--- NOTE | 2018-07-07 13:09 | XRay Report ---
XR chest Pre-admission PA/Lat CLINICAL HISTORY: Preoperative chest COMPARISON STUDY: 03/05/2016 FINDINGS: The cardiac and mediastinal contours are normal. There is no evidence of focal pulmonary co nsolidation. There is no evidence of failure. No pleural effusions are visualized.[ There are minor s ubsegmental atelectatic changes the lung bases. IMPRESSION: No active disease in the chest. Electronically signed by: Misael Guidry M.D. 07/07/2018 1:07 PM
[2018-07-07 14:14] LABS: Est GFR (African American) 106.6
[2018-07-07 14:15] LABS: BUN Creatinine Ratio 15.5 (10-20); Calcium 9.2 mg/dl (8.5-10.1); Creatinine Clr Calc Pharmacy 123.3 ml/min
[2018-07-07 15:28] LABS: Basophils # (auto) 0.04 K/uL (0-0.2); Basophils % (auto) 0.7 %; Eosinophils # (auto) 0.28 K/uL (0-0.5); Eosinophils % (auto) 4.7 %; Hematocrit (blood only) 42.3 % (42-52); Hemoglobin 14.3 g/dL (14.0-18.0); Immature Granulocytes # (auto) 0.01 K/uL (0.00-0.02); Immature Granulocytes % (auto) 0.2 %; Lymphocytes % (auto) 35.1 %; Mean Corpuscular Hgb Conc 33.8 g/dL (32-36); Mean Corpuscular Volume 87.9 fL (80-100); Mean Platelet Volume 10.4 fL (7.4-10.4); Monocytes # (auto) 0.59 K/uL (0.11-0.59); Monocytes % (auto) 9.9 %; Neutrophils # (auto) 2.96 K/uL (1.4-6.5); Neutrophils % (auto) 49.4 %; Platelet Count 201 K/uL (130-400); RDW Coefficient of Variation 12.6 % (11.5-14.5); RDW Standard Deviation 40.3 fL (36.4-46.3); Red Blood Count 4.81 M/uL (4.7-6.1); White Blood Count 5.98 K/uL (4.8-10.8)
[2018-07-07 15:33] LABS: Appearance Urine Clear (Clear); Bilirubin Urine Negative (Negative); Blood Urine Negative (Negative); Color Urine Yellow; Glucose Urine UA Negative (Negative); Ketones Urine Negative (Negative); Leukocyte Esterase Urine Negative (Negative); Nitrite Urine Negative (Negative); Protein Urine Negative (Negative); Specific Gravity Urine 1.019 (1.000-1.030); Urobilinogen Urine Negative (Negative)
[2018-07-07 15:41] LABS: INR 1.1 (0.9-1.1); Partial Thromboplastin Ratio 0.9
[~2018-07-29 06:00] MED LIST changes: +ACETAMINOPHEN 500 MG TAB PO SCH; -ASPI325T45 PO; -CARVEDILOL PO; +CEFAZOLIN 3000MG 65 ML IV SCH; +CeleBREX 200 MG CAP PO SCH; +GABAPENTIN 300 MG CAP PO SCH; +GABAPENTIN 300 MG x 2 PO SCH; -KRIL1CAP18 PO; -LISIPOW PO; +LR 15ML/HR IV SCH; -SINUTAB PO
[2018-07-29] MEDS ORDERED: fentaNYL citrate 100 MCG/2 ML VIAL ONE ×9 (06:39→12:03)
[2018-07-29] MEDS ORDERED: MIDAZOLAM HCL 1 MG/ML 2ML VIAL ONE (06:39)
[2018-07-29] MEDS ORDERED: ALBUMIN HUMAN 5% 12.5 GM/250 ML VIAL IV ONE ×3 (07:00→10:52)
[2018-07-29] MEDS ORDERED: BUPIVACAINE/EPINEPHRINE 0.5% MPF 1:200,000 30 ML VIAL ONE (07:04)
[2018-07-29] MEDS ORDERED: BACITRACIN INJ 50,000 UNIT VIAL ONE (07:04)
--- NOTE | 2018-07-29 07:33 | History & Physical Bridge Note ---
Date of Service July 29, 2018 History & Physical Bridge Note I have examined the patient, reviewed the History & Physical and in the interval since the performance of the History & Physical I have noted the following changes of clinical significance: no changes noted
--- NOTE | 2018-07-29 07:35 | History & Physical Report ---
Date of Service July 29, 2018 Assessment & Plan (1) Spinal stenosis, lumbar region with neurogenic claudication: Removal of hardware L4-5 decompression and fusion L2-S1 Present on Admission?: Yes History of Present Illness Chief Complaint: Back and leg pain Primary Care Provider: Erick Ortiz This is a 67-year-old male that is failed extensive course of nonoperative care and is here for surgical intervention. Allergies Allergy/AdvReac Type Severity Reaction Status Date / Time No Known Allergies Allergy Verified 07/29/18 06:19 Home Medications Home Medications Medication Instructions Recorded Confirmed Type Makr Red 1 - 2 tab PO DAILY 07/01/18 07/29/18 History carvedilol 25 mg PO BID 07/01/18 07/01/18 History fluticasone propionate [Flonase 1 - 2 spray INTRANASAL DAILY 07/01/18 07/29/18 History Allergy Relief] lisinopril-hydrochlorothiazide 1 tab PO BID 07/01/18 07/01/18 History multivitamin [Multiple Vitamins] 1 tab PO DAILY 07/01/18 07/29/18 History vitamin B complex 1 cap PO DAILY 07/01/18 07/29/18 History Past Med/Surg History Medical History Abnormal EKG Patient was told he "may have had a heart attack" with past EKG (> 10 yrs ago). PCP reviewed, has never followed with cardio. 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 Difficult airway for intubation 03/29/16 lumbar decompression @ [facility] -- GLIDESCOPE # 4 AFTER ATTEMPTS WITH MAC 4 AND SANDOVAL 3. History of prostate cancer S/P PROSTATECTOMY 2007 Hypertension SOB (shortness of breath) on exertion CLIMBING 10 STAIRS, DEPENDS ON HOW FAST Sleep apnea CPAP Spinal stenosis Surgical History History of arthroscopy of left knee X2 History of arthroscopy of right knee History of carpal tunnel release of both wrists History of colonoscopy History of incisional hernia repair History of lumbar fusion L4-5 History of prostatectomy History of shoulder surgery LEFT Family History Other Family history of cancer Social History Preferred Language: Nigerien Communication Ability: Effective Concrete Form Setter And Finisher Required: No Beliefs That Will Affect Care: Confucianism Confucianism Beliefs: ADVENTIST Current Living Situation: Spouse Other Information That Helps Us Care for You: No Feels Safe at Home: Yes Smoking Status: Former smoker Tobacco Type: cigarettes and e-cigarettes Do You Dip or Chew Tobacco: No Smoking End Date: QUIT 4 YR AGO/E CIGARETTES QUIT 2 MONTHS Hx Alcohol Use: Yes Alcohol type: beer Physical Exam Vital Signs (Past 24 Hours): Last Vital Signs Temp 36.7 C 07/29/18 06:24 Pulse 75 07/29/18 06:24 Resp 20 07/29/18 06:24 BP 180/90 H 07/29/18 06:24 Pulse Ox 97 07/29/18 06:24 Physical Exam: Patient is alert and oriented neurologically intact.
[2018-07-29] MEDS ORDERED: HYDROmorphone INJ 2 MG/ML SYR/VIAL ONE ×3 (08:20→11:44)
[2018-07-29] MEDS ORDERED: ePHEDrine sulfate 50 MG/ML SYR ONE (08:44)
[2018-07-29] MEDS ORDERED: PHENYLEPHRINE 100MCG/ML 5ML SYR ONE (08:44)
[2018-07-29] MEDS ORDERED: LIDOCAINE HCL 2% 2 ML VIAL/AMP(20MG/ML) INFIL ONE (08:44)
[2018-07-29] MEDS ORDERED: ROCURONIUM BROMIDE 10 MG/ML 5 ML VIAL ONE ×2 (08:44→10:41)
[2018-07-29] MEDS ORDERED: DEXAMETHASONE SOD INJ 4 MG/ML VIAL ONE (08:44)
[2018-07-29] MEDS ORDERED: PROPOFOL IV EMULSION 10 MG/ML 20 ML VIAL IV ONE (08:44)
[2018-07-29] MEDS ORDERED: ONDANSETRON INJ 2 MG/ML 2 ML VIAL ONE ×2 (08:44→11:44)
[2018-07-29] MEDS ORDERED: ePHEDrine sulfate 50 MG/ML AMP ONE ×2 (08:45→11:44)
[2018-07-29] MEDS ORDERED: FLOSEAL HEMOSTATIC MATRIX 10ML TOP ONE (09:28)
[2018-07-29] MEDS ORDERED: CEFAZOLIN 250 MG/ML 1 GM VIAL ONE (11:10)
[2018-07-29 11:12] LABS: Hematocrit (blood only) 34.4 % (42-52); Hemoglobin 11.9 g/dL (14.0-18.0)
--- NOTE | 2018-07-29 11:38 | Fluoroscopy Report ---
FL lumbar spine 2-3V CLINICAL HISTORY: L4-L5 REMOVAL, L2-S1 DECOMPRESSION AND FUSION, INTERBODY COMPARISON STUDY: 03/29/2016 FLUOROSCOPY TIME: 27 seconds. NUMBER OF FLUOROSCOPIC IMAGES: 2 FINDINGS: 2 intraoperative fluoroscopic spot images are provided for interpretation. There is a limit ed [id number]. There are postsurgical changes of an L2-S1 spinal decompression with posterior pedi armando screw fixation. There are postsurgical changes of discectomies and interbody fusions at the L4-5 and L5-S1 levels. IMPRESSION: Intraoperative fluoroscopic spot images demonstrating postsurgical changes of an L2-S1 s da decompression and posterior spinal fusion Electronically signed by: Misael Guidry M.D. 07/29/2018 11:37 AM
[2018-07-29] MEDS ORDERED: LABETALOL HCL IV 5 MG/ML 20ML IV ONE (11:44)
[2018-07-29] MEDS ORDERED: KETOROLAC 30 MG/ML VIAL ONE (11:44)
--- NOTE | 2018-07-29 11:58 | Operative Report ---
Post Operative Report Pre & Post Diagnosis Operation Date: 07/23/18 07:45 <No data on this case meets the specified criteria> Operation Date: 07/29/18 07:45 Pre-Op Diagnosis: Lumbar Spinal Stenosis with Neurogenic Claudication Morbid obesity Post-Op Diagnosis: Lumbar Spinal Stenosis with Neurogenic Claudication Morbid obesity Procedure Operation Date: 07/23/18 07:45 <No data on this case meets the specified criteria> Operation Date: 07/29/18 07:45 Actual Procedures #1 removal of posterior instrumentation L4-5. #2 exploration of fusion L4-5 per #3 lumbar decompression with bilateral medial facetectomies and foraminotomies L2-3 L3-4 L5-S1. #4 posterior spinal fusion L2-3 L3-4 L4-5 L5-S1. #5 placement of posterior segmental instrumentation using globus rods and screws L2-S1. #6 interbody fusion L5-S1. #7 placement of titanium 13 x 26 mm cage L5-S1. #8 basement of local autograft in the posterior lateral gutters per #9 placement infuse collagen sponge combined with master graft in the posterior lateral gutters and ostial amp and interbody space. Surgeon Mir Weldon, DO Rn Assessment None Estimated Blood Loss 1,200 Findings See Below Patient is 5 foot and 11 inches tall weighing 133 kg with a BMI of 41. He had a EBL of over 1200 cc. Patient's body habitus and blood loss added significant technical difficulty to the procedure and added at least 50% increase in operative time. Specimens None Indications This is a 67 male with failed extensive course of nonoperative care presenting with neurogenic claudication. Description of Procedure Patient was met with identified and informed consent obtained. Patient was then taken to the operative suite underwent intubation placed in the prone position the Reji table on top of the Manuel frame. All bony prominences well-padded eyes inspected to ensure no external pressure placed upon. This point the lumbar spine was prepped and draped in the normal sterile fashion. Sharp dissection with the assistance of Bovie cautery was performed down to and exposing the lamina and transverse processes of L2-L3 instrumentation at L4-L5 and sacral ala bilaterally. And then proceeded to remove the hardware at L4-5 bilaterally and explored the fusion mass noted to be mature and intact. I then performed a complete laminectomy of L5 including bilateral medial facetectomies and foraminotomies. I then performed a complete laminectomy of L3 and L2 from a caudal cephalad fashion again performing bilateral medial facetectomies and foraminotomies addressing severe spinal stenosis. Pedicle screws were then placed in L2 L3-L4-L5 and S1 levels bilaterally with the assistance of fluoroscopy and appropriate size rods cut contoured and placed. By way of a transforaminal approach on the left complete discectomy of L5-S1 is performed endplates curetted to subcortical bleeding bone and a 13 x 26 mm titanium cage filled with osteo-amp bone graft tapped in position. Rods and then locked in final position bilaterally. Cross-link locked in position. The transverse processes of L2 L3-L4-L5 sacral ala bur to subcortical bleeding bone. Infuse collagen sponge mass graft local autograft placed in the posterior lateral gutters. 15 round APOLINAR drain inserted. Incision was then closed with 1 Vicryl in the fascia 2-0 Vicryl substantially and 4-0 Monocryl for final skin closure. Steri-Strip sterile dressings placed. Patient awakened taken to PACU stable condition. Please note spinal cord monitoring was utilized throughout the procedure and no changes noted. I attest to the content of the Intraoperative Record and any orders documented therein. Any exceptions are noted below.
[2018-07-29] MEDS ORDERED: ATROPINE SULFATE 0.1 MG/ML 10ML SYR IV PRN (12:30)
[2018-07-29] MEDS ORDERED: NALOXONE HCL 0.4 MG/1 ML VIAL/CARP IV PRN (12:30)
[2018-07-29] MEDS ORDERED: ePHEDrine sulfate 50 MG/ML AMP IV PRN (12:30)
[2018-07-29] MEDS ORDERED: PROMETHAZINE HCL 12.5 MG in SODIUM CHLORIDE 0.9% 50 ML IV PRN ×2 (12:30→14:44)
[2018-07-29] MEDS ORDERED: HYDROmorphone INJ 1 MG/ML SYRINGE IV PRN (12:30)
[2018-07-29] MEDS ORDERED: ONDANSETRON INJ 2 MG/ML 2 ML VIAL IV PRN ×2 (12:30→14:44)
[2018-07-29] MEDS ORDERED: FLUMAZENIL 0.1 MG/1 ML 10 ML VIAL IV PRN (12:30)
[2018-07-29] MEDS: LABETALOL HCL IV 5 MG/ML 20ML IV PRN ×2 (12:45→12:50)
[2018-07-29 13:00] LABS: Hematocrit (blood only) 32.1 % (42-52); Hemoglobin 11.4 g/dL (14.0-18.0)
[2018-07-29] MEDS ORDERED: HydrALAZINE HCL 20 MG/ML VIAL IV STA (13:17)
[2018-07-29] MEDS ORDERED: HydrALAZINE HCL 20 MG/ML VIAL ONE (13:19)
[2018-07-29] MEDS ORDERED: DO NOT ADMINISTER PNEUMOCOCCAL VACCINE PRN (14:44)
[2018-07-29] MEDS ORDERED: ACETAMINOPHEN 1,000 MG/100 ML VIAL IV PRN (14:44)
[2018-07-29] MEDS ORDERED: METOCLOPRAMIDE HCL INJ 5 MG/ML 2 ML VIAL IV PRN (14:44)
[2018-07-29] MEDS ORDERED: ONDANSETRON 4 MG TAB PO PRN (14:44)
[2018-07-29] MEDS ORDERED: ALUMINUM/MAGNESIUM SUSP 30 ML UDC PO PRN (14:44)
[2018-07-29] MEDS ORDERED: BISACODYL 10 MG SUPP PR PRN (14:44)
[2018-07-29] MEDS ORDERED: FAMOTIDINE 20 MG TAB PO PRN (14:44)
[2018-07-29] MEDS ORDERED: MAGNESIUM HYDROXIDE SUSP 30 ML UDC PO PRN (14:44)
[2018-07-29] MEDS ORDERED: TRAMADOL HCL 50 MG TABLET PO PRN (14:44)
[2018-07-29] MEDS ORDERED: LORazepam 0.5 MG/1 ML VIAL IV PRN (14:44)
[2018-07-29] MEDS ORDERED: HYDROmorphone INJ 0.5 MG/0.5 ML SYR IV PRN (14:44)
[2018-07-29] MEDS ORDERED: SOD PHOSPHATE/SOD BIPHOSPHATE ENEMA 132 ML BTL PR PRN (14:44)
[2018-07-29] MEDS ORDERED: DO NOT ADMINISTER FLU VACCINE PRN (14:44)
[2018-07-29] MEDS ORDERED: ACETAMINOPHEN 500 MG TAB PO PRN (14:44)
--- NOTE | 2018-07-29 15:33 | Anesthesiology Progress Note ---
Date of Service July 29, 2018 Anesthesia Post Procedure Vital Signs Vital Signs: Temp Pulse Pulse Resp BP Pulse Ox 07/29/18 13:42 82 16 165/76 H 98 07/29/18 13:30 81 16 158/75 H 98 07/29/18 13:20 81 16 169/78 H 98 07/29/18 13:10 36.2 C L 81 16 173/87 H 98 07/29/18 13:00 75 16 172/84 H 98 07/29/18 12:50 72 16 169/74 H 97 07/29/18 12:40 73 16 170/85 H 98 07/29/18 12:30 73 16 173/83 H 98 07/29/18 12:20 74 16 162/79 H 98 07/29/18 12:10 36.1 C L 76 16 208/94 H 98 07/29/18 06:24 36.7 C 75 20 180/90 H 97 Pain Intensity Lower Back: Pain Intensity: 4 Transfer of Care Handoff Completed per policy Notes Mental Status: alert / awake / arousable Patient Amnestic to Procedure: Yes Nausea / Vomiting: adequately controlled Pain: adequately controlled Airway Patency, RR, SpO2: stable & adequate BP & HR: stable & adequate Hydration State: stable & adequate Anesthetic Complications: no major complications apparent Notes: H & H 11.4/32.1
--- NOTE | 2018-07-29 15:35 | Anesthesiology Progress Note ---
Date of Service July 29, 2018 Anesthesia Post Procedure Vital Signs Vital Signs: Temp Pulse Pulse Resp BP Pulse Ox 07/29/18 14:00 82 16 171/87 H 98 07/29/18 13:50 82 16 163/74 H 98 07/29/18 13:40 82 16 165/76 H 98 07/29/18 13:30 81 16 158/75 H 98 07/29/18 13:20 81 16 169/78 H 98 07/29/18 13:10 36.2 C L 81 16 173/87 H 98 07/29/18 13:00 75 16 172/84 H 98 07/29/18 12:50 72 16 169/74 H 97 07/29/18 12:40 73 16 170/85 H 98 07/29/18 12:30 73 16 173/83 H 98 07/29/18 12:20 74 16 162/79 H 98 07/29/18 12:10 36.1 C L 76 16 208/94 H 98 07/29/18 06:24 36.7 C 75 20 180/90 H 97 Pain Intensity Lower Back: Pain Intensity: 4 Transfer of Care Handoff Completed per policy Notes Mental Status: alert / awake / arousable Patient Amnestic to Procedure: Yes Nausea / Vomiting: adequately controlled Pain: adequately controlled Airway Patency, RR, SpO2: stable & adequate BP & HR: stable & adequate Hydration State: stable & adequate Anesthetic Complications: no major complications apparent
--- NOTE | 2018-07-29 15:39 | Consultation ---
Date of Consultation July 29, 2018 Assessment & Plan (1) Status post lumbar surgery: Post op day# 0 S/P L2-S1 decompression & fusion by Dr Weldon EBL#1500ml. Hgb: 11.4 post op from 14.3 pre-op. Post op pt reports pain controlled. Mild nausea, no vomiting. -pain management per ortho -wound management per ortho -PT/OT as appropriate -DVT prophylaxis per ortho -incentive spirometry -continue to monitor H&H for acute blood loss anemia (2) HTN (hypertension): Elevated BP -Pain control as needed -continue carvedilol, lisinopril -will hold HCTZ (3) Sleep apnea: -May use own CPAP HS (4) History of prostate cancer: S/P prostatectomy DVT Prophylaxis -SCDs per ortho Follows with Erick Ortiz PA-C at [facility] in [place] for routine care Pt was seen with Dr Arceo. See addendum Pt will be followed by Dr Neal starting 07/30/18 Thank you for this consultation. We will follow the patient with you during their hospital stay. You can reach a member of the [facility] Hospitalist Team 08/10 via pager @ [phone]. Supervising Physician Co-Signing Physician Notes Patient is a 67-year-old male with history of hypertension, dyslipidemia and other problems seen and examined postop. Patient underwent lumbar decompression and fusion by Dr. Weldon. Patient is doing well postop. He denies any chest pain, shortness of breath, dizziness, nausea, abdominal pain. Denies any numbness or tingling in the feet. Back pain at surgical site is controlled. On exam patient is morbidly obese, no apparent distress, normocephalic atraumatic, lungs are clear to auscultation, S1-S2, no murmur, abdomen soft nontender, back- surgical site in dressing, complete neuro exam could not be performed due to restricted activity, alert awake and oriented, no pedal edema. Monitor for postop anemia. Transfuse PRBCs as needed. Activity, DVT prophylaxis as per Ortho team. Continue carvedilol, lisinopril for hypertension. Agree with holding hydrochlorothiazide as above. I personally reviewed the record. Patient is interviewed and examined at bedside. Patient's care is coordinated with Elsie Schreckengost PA-C. Please refer to the documentation above for details of patient's presentation and for discussion of other issues. History of Present Illness Reason for Consultation: Post op medical management Attending Physician: Mir Weldon DO History of Present Illness Pt is 67 y/o M with PMH HTN, HLD, prostate CA s/p surgery, chronic RBBB seen in consultation for post op medical management s/p L2-S1 decompression, fusion by Dr Weldon today. Post op pt reports pain controlled. Denies numbness/tingling to lower extremities. Reports some slight nausea. Denies vomiting. Denies EVERETT, dizziness, CP, SOB, sore throat, abdominal pain. Allergies Allergy/AdvReac Type Severity Reaction Status Date / Time No Known Allergies Allergy Verified 07/29/18 06:19 Home Medications Home Medications Medication Instructions Recorded Confirmed Type Mark Red 1 - 2 tab PO DAILY 07/01/18 07/29/18 History carvedilol 25 mg PO BID 07/01/18 07/01/18 History fluticasone propionate [Flonase 1 - 2 spray INTRANASAL DAILY 07/01/18 07/29/18 History Allergy Relief] lisinopril-hydrochlorothiazide 1 tab PO BID 07/01/18 07/01/18 History multivitamin [Multiple Vitamins] 1 tab PO DAILY 07/01/18 07/29/18 History vitamin B complex 1 cap PO DAILY 07/01/18 07/29/18 History Patient History Medical History RBBB (Chronic) SOB (shortness of breath) on exertion (Chronic) CLIMBING 10 STAIRS, DEPENDS ON HOW FAST Sleep apnea (Chronic) CPAP Spinal stenosis (Chronic) Abnormal EKG (Chronic) Patient was told he "may have had a heart attack" with past EKG (> 10 yrs ago). PCP reviewed, has never followed with cardio. EKG does show "possible inferior infarct" since at least 2016 per [facility] EKG records. HLD (hyperlipidemia) (Chronic) HTN (hypertension) (Chronic) History of prostate cancer (Chronic) Surgical History History of lumbar fusion (Chronic) L4-5 History of arthroscopy of left knee (Chronic) X2 History of arthroscopy of right knee (Chronic) History of incisional hernia repair (Chronic) History of shoulder surgery (Chronic) LEFT History of carpal tunnel release of both wrists (Chronic) History of colonoscopy (Chronic) Difficult airway for intubation (Chronic) 03/29/16 lumbar decompression @ [facility] -- GLIDESCOPE # 4 AFTER ATTEMPTS WITH MAC 4 AND SANDOVAL 3. History of prostatectomy (Chronic) Social History Preferred Language: Romanian Communication Ability: Effective Facilities Management Executive Required: No Beliefs That Will Affect Care: Lutheran Lutheran Beliefs: RASTAFARI Current Living Situation: Spouse Other Information That Helps Us Care for You: No Feels Safe at Home: Yes Smoking Status: Former smoker Tobacco Type: cigarettes and e-cigarettes Do You Dip or Chew Tobacco: No Smoking End Date: QUIT 4 YR AGO/E CIGARETTES QUIT 2 MONTHS Hx Alcohol Use: Yes Alcohol type: beer Hx Substance Use: No Review of Systems Review of Systems: All systems reviewed & are unremarkable except as noted in HPI & below Physical Exam Physical Exam: General: no acute distress, obese Head: normocephalic, atraumatic Eyes: conjunctiva non-injected, anicteric ENT: normal inspection external ears, nose, mucous membranes moist Neck: supple, trachea midline Lungs: clear, no respiratory distress, no wheezing/rhonchi/rales CV: RRR, no murmur, no pretibial edema Abd: normal BS, soft, non-tender Ext: no cyanosis, no calf tenderness Neuro: A&O x 3, no focal deficits noted, normal affect Skin: warm, dry Results & Data Vital Signs (Past 12 Hours) Vital Signs Temp Pulse Pulse Resp BP Pulse Ox 07/29/18 14:45 36.4 C L 88 14 176/84 H 97 07/29/18 14:00 82 16 171/87 H 98 07/29/18 13:50 82 16 163/74 H 98 07/29/18 13:40 82 16 165/76 H 98 07/29/18 13:30 81 16 158/75 H 98 07/29/18 13:20 81 16 169/78 H 98 07/29/18 13:10 36.2 C L 81 16 173/87 H 98 07/29/18 13:00 75 16 172/84 H 98 07/29/18 12:50 72 16 169/74 H 97 07/29/18 12:40 73 16 170/85 H 98 07/29/18 12:30 73 16 173/83 H 98 07/29/18 12:20 74 16 162/79 H 98 07/29/18 12:10 36.1 C L 76 16 208/94 H 98 07/29/18 06:24 36.7 C 75 20 180/90 H 97 Laboratory Results Short CBC 07/29/18 07/29/18 Range/Units 11:02 12:50 Hgb 11.9 L 11.4 L (14.0-18.0) g/dL Hct 34.4 L 32.1 L (42-52) %
[2018-07-29] MEDS: LACTATED RINGER'S 1,000 ML IV SCH ×2 (16:24→23:13)
[2018-07-29] MEDS: OXYCODONE HCL IR 5 MG TAB (IMMEDIATE RELEASE) PO PRN ×2 (16:33→22:20)
[2018-07-29] MEDS: KETOROLAC TROMETHAMINE 15 MG/ML VIAL IV SCH ×2 (17:44→23:43)
[2018-07-29] MEDS: CEFAZOLIN 2000MG 2,000 MG/15 ML SYR IV SCH ×2 (17:44→23:43)
[2018-07-29] MEDS: DOCUSATE SODIUM/SENNA 50/8.6MG TAB PO SCH (20:59)
[2018-07-29] MEDS: CARVEDILOL 25 MG TAB PO SCH (20:59)
[2018-07-29] MEDS ORDERED: LISINOPRIL/HCTZ 20/12.5MG 1 TAB TAB PO SCH (21:00)
[2018-07-29] MEDS: LISINOPRIL 20 MG TAB PO SCH (21:00)
[2018-07-30] MEDS: LACTATED RINGER'S 1,000 ML IV SCH (05:34)
[2018-07-30] MEDS: POLYETHYLENE (MIRALAX) 17 GM PACK PO SCH ×3 (05:37→19:53)
[2018-07-30] MEDS: KETOROLAC TROMETHAMINE 15 MG/ML VIAL IV SCH ×2 (05:38→12:15)
[2018-07-30 06:20] LABS: Basophils # (auto) 0.01 K/uL (0-0.2); Basophils % (auto) 0.1 %; Hematocrit (blood only) 29.6 % (42-52); Hemoglobin 10.4 g/dL (14.0-18.0); Immature Granulocytes # (auto) 0.07 K/uL (0.00-0.02); Immature Granulocytes % (auto) 0.4 %; Lymphocytes # (auto) 1.17 K/uL (1.2-3.4); Lymphocytes % (auto) 6.5 %; Mean Corpuscular Hgb Conc 35.1 g/dL (32-36); Mean Corpuscular Volume 84.8 fL (80-100); Mean Platelet Volume 9.7 fL (7.4-10.4); Monocytes # (auto) 1.67 K/uL (0.11-0.59); Monocytes % (auto) 9.3 %; Neutrophils # (auto) 15.08 K/uL (1.4-6.5); Neutrophils % (auto) 83.7 %; Platelet Count 179 K/uL (130-400); RDW Coefficient of Variation 12.6 % (11.5-14.5); RDW Standard Deviation 38.8 fL (36.4-46.3); Red Blood Count 3.49 M/uL (4.7-6.1)
[2018-07-30 06:57] LABS: BUN Creatinine Ratio 13.1 (10-20); Calcium 8.1 mg/dl (8.5-10.1); Creatinine Clr Calc Pharmacy 105.3 ml/min; Est GFR (African American) 95.6; Est GFR (Non-African American) 82.5
[2018-07-30] MEDS: CARVEDILOL 25 MG TAB PO SCH ×2 (08:07→21:02)
[2018-07-30] MEDS: LISINOPRIL 20 MG TAB PO SCH ×2 (08:07→21:02)
--- NOTE | 2018-07-30 08:07 | Anesthesiology Progress Note ---
Date of Service July 30, 2018 Anesthesia Post Procedure Vital Signs Vital Signs: Temp Pulse Pulse Resp BP Pulse Ox 07/30/18 03:15 36.9 C 80 18 127/66 96 07/29/18 23:20 36.6 C 94 H 20 164/73 H 95 07/29/18 17:50 85 18 157/78 H 98 07/29/18 16:21 84 18 173/72 H 97 07/29/18 15:43 36.3 C L 84 18 156/69 H 98 07/29/18 14:45 36.4 C L 88 14 176/84 H 97 07/29/18 14:00 82 16 171/87 H 98 07/29/18 13:50 82 16 163/74 H 98 07/29/18 13:40 82 16 165/76 H 98 07/29/18 13:30 81 16 158/75 H 98 07/29/18 13:20 81 16 169/78 H 98 07/29/18 13:10 36.2 C L 81 16 173/87 H 98 07/29/18 13:00 75 16 172/84 H 98 07/29/18 12:50 72 16 169/74 H 97 07/29/18 12:40 73 16 170/85 H 98 07/29/18 12:30 73 16 173/83 H 98 07/29/18 12:20 74 16 162/79 H 98 07/29/18 12:10 36.1 C L 76 16 208/94 H 98 Pain Intensity Lower Back: Pain Intensity: 3 Notes Mental Status: alert / awake / arousable and participated in evaluation Patient Amnestic to Procedure: Yes Nausea / Vomiting: adequately controlled Pain: adequately controlled Airway Patency, RR, SpO2: stable & adequate BP & HR: stable & adequate Hydration State: stable & adequate Anesthetic Complications: no major complications apparent
[2018-07-30] MEDS: VITAMIN B COMPLEX TAB PO SCH (08:08)
[2018-07-30] MEDS: MULTIVITAMIN TAB PO SCH (08:08)
--- NOTE | 2018-07-30 08:34 | Hospitalist Progress Note ---
Date of Service July 30, 2018 Assessment & Plan (1) Status post lumbar surgery: Post op day# 1 S/P L2-S1 decompression & fusion by Dr Weldon EBL#1200ml. Total APOLINAR drain output: #330ml. Hgb: 11.4 post op from 14.3 pre-op. Pain reports pain moderately to well controlled. Mild nausea, no vomiting. -pain management per ortho -wound management per ortho -PT/OT as appropriate -DVT prophylaxis per ortho, SCDs -incentive spirometry -bowel regimen (2) Acute blood loss anemia: EBL#1200ml. APOLINAR drain output: #330ml. H/H:10.4/29.6 today. Hgb 11.4 yesterday post op, was 14.3 pre-op. -monitor H&H (3) Leukocytosis: WBC: 18 No fevers/chills. No cough, SOB. Esqueda cath draining clear yellow urine. Had Decadron 12mg yesterday. May be secondary to steroids or physiologic response to surgery. -monitor CBC and monitor for any signs or symptoms of infection (4) HTN (hypertension): Hx HTN. Had Elevated BP post-op. Today BP improved at 127/66, 144/70 -Pain control as needed -continue carvedilol, lisinopril -will hold HCTZ and continue to monitor (5) Sleep apnea: -May use own CPAP HS (6) History of prostate cancer: S/P prostatectomy DVT Prophylaxis -SCDs per ortho Disposition per primary team. Will need follow up with PCP - Erick Ortiz PA-C at [facility] in [place] for routine care Pt was seen with Dr Neal. See addendum Supervising Physician Co-Signing Physician Notes Attending addendum The patient was seen and examined by me in medical floor He is status post L2-S1 decompression and fusion Denies any symptoms as of this morning On examination Sitting on a chair without any symptoms Hemodynamically stable Chest-decreased breath sounds without any wheezing and/or crackles Heart-S1-S2, regular Abdomen-distended, soft, nontender and bowel some present Extremities-trace edema bilateral Labs and imaging studies reviewed Noted to have high white count likely secondary to use of steroid yesterday Reviewed assessment and plan as outlined above by DOMINICK Cancino Dr Subjective Medical management follow up Pt sitting up in bed. Reports back pain at 3/10 on pain scale. Denies extremity paresthesias. Reports some intermittent nausea. Denies vomiting. States passing flatus, no BM since yesterday morning. Has Esqueda cath in place. Denies fever/chills, diaphoresis, EVERETT, dizziness, CP, SOB, cough, sore throat, choking, abdominal pain, rashes. Review of Systems Review of Systems: All systems reviewed & are unremarkable except as noted in HPI & below Physical Exam Physical Exam: General: no acute distress, morbidly obese Head: normocephalic, atraumatic Eyes: conjunctiva non-injected, anicteric ENT: normal inspection external ears, nose, mucous membranes moist Neck: supple, trachea midline Lungs: clear, no respiratory distress CV: RRR, no murmur, trace pretibial edema Abd: protuberant, normal BS, soft, non-tender Ext: no cyanosis, no calf tenderness, pedal pushes and pulls intact bilaterally, distal pedal pulses intact, sensation to light touch intact Neuro: A&O x 3, no focal deficits noted, normal affect Skin: warm, dry; dressing to back dry and intact Results & Data Vital Signs (Past 12 Hours) Vital Signs Temp Pulse Pulse Resp BP Pulse Ox 07/30/18 08:08 36.8 C 78 20 144/70 H 96 07/30/18 03:15 36.9 C 80 18 127/66 96 07/29/18 23:20 36.6 C 94 H 20 164/73 H 95 Laboratory Results Short CBC 07/29/18 07/29/18 07/30/18 Range/Units 11:02 12:50 06:00 WBC 18.00 H (4.8-10.8) K/uL Hgb 11.9 L 11.4 L 10.4 L (14.0-18.0) g/dL Hct 34.4 L 32.1 L 29.6 L (42-52) % Plt Count 179 (130-400) K/uL BMP 07/30/18 06:00 Sodium 140 Potassium 4.0 Chloride 106 Carbon Dioxide 30 BUN 12 Creatinine 0.95 Glucose 122 H Calcium 8.1 L
[2018-07-30] MEDS: OXYCODONE HCL IR 5 MG TAB (IMMEDIATE RELEASE) PO PRN ×2 (10:13→21:05)
--- NOTE | 2018-07-30 12:32 | Orthopedic Progress Note ---
Date of Service July 30, 2018 Assessment & Plan (1) Status post lumbar surgery: This time we will continue physical therapy advance his bowel regiment anticipate discharge home this weekend. Present on Admission?: Yes Subjective Back pain controlled leg symptoms improved. Physical Exam Physical Exam: Patient is in the chair at the bedside. Is good strength testing. Appears comfortable. Results & Data Vital Signs (Past 12 Hours) Vital Signs Temp Pulse Pulse Resp BP Pulse Ox 07/30/18 11:41 36.8 C 75 18 138/72 96 07/30/18 08:08 36.8 C 78 20 144/70 H 96 07/30/18 03:15 36.9 C 80 18 127/66 96
[2018-07-30] MEDS: DOCUSATE SODIUM/SENNA 50/8.6MG TAB PO SCH (21:02)
[2018-07-31] MEDS: POLYETHYLENE (MIRALAX) 17 GM PACK PO SCH ×4 (01:08→17:57)
[2018-07-31 05:42] LABS: Basophils # (auto) 0.02 K/uL (0-0.2); Basophils % (auto) 0.2 %; Eosinophils # (auto) 0.19 K/uL (0-0.5); Eosinophils % (auto) 2.1 %; Hematocrit (blood only) 28.2 % (42-52); Hemoglobin 9.6 g/dL (14.0-18.0); Immature Granulocytes # (auto) 0.03 K/uL (0.00-0.02); Immature Granulocytes % (auto) 0.3 %; Lymphocytes # (auto) 1.88 K/uL (1.2-3.4); Lymphocytes % (auto) 21.2 %; Mean Platelet Volume 9.9 fL (7.4-10.4); Monocytes % (auto) 12.4 %; Neutrophils # (auto) 5.66 K/uL (1.4-6.5); Neutrophils % (auto) 63.8 %; Platelet Count 158 K/uL (130-400); RDW Coefficient of Variation 12.9 % (11.5-14.5); RDW Standard Deviation 41.7 fL (36.4-46.3); Red Blood Count 3.24 M/uL (4.7-6.1); White Blood Count 8.88 K/uL (4.8-10.8)
[2018-07-31 06:23] LABS: BUN Creatinine Ratio 19.9 (10-20); Calcium 7.8 mg/dl (8.5-10.1); Est GFR (African American) 106.1; Est GFR (Non-African American) 91.5
[2018-07-31] MEDS: OXYCODONE HCL IR 5 MG TAB (IMMEDIATE RELEASE) PO PRN ×4 (07:18→20:40)
[2018-07-31] MEDS: MULTIVITAMIN TAB PO SCH (07:37)
[2018-07-31] MEDS: CARVEDILOL 25 MG TAB PO SCH ×2 (07:37→20:39)
[2018-07-31] MEDS: VITAMIN B COMPLEX TAB PO SCH (07:37)
[2018-07-31] MEDS: LISINOPRIL 20 MG TAB PO SCH ×2 (07:38→20:39)
--- NOTE | 2018-07-31 08:47 | Orthopedic Progress Note ---
Date of Service July 31, 2018 Assessment & Plan (1) Spinal stenosis, lumbar region with neurogenic claudication: This time we will continue physical therapy monitor his APOLINAR output anticipate discharge home tomorrow. Present on Admission?: Yes Subjective Back pain controlled leg symptoms improving. Physical Exam Physical Exam: Patient is sitting in a chair has good strength testing appears comfortable. Results & Data Vital Signs (Past 12 Hours) Vital Signs Temp Pulse Resp BP BP Pulse Ox 07/31/18 06:42 36.8 C 75 18 132/68 96 07/30/18 23:20 36.7 C 81 18 174/72 H 95 07/30/18 21:01 80 150/73 H 95
[2018-07-31] MEDS: LORazepam 0.5 MG TAB PO PRN (12:23)
--- NOTE | 2018-07-31 13:25 | Hospitalist Progress Note ---
Date of Service July 31, 2018 Assessment & Plan (1) Status post lumbar surgery: Post op day# 1 S/P L2-S1 decompression & fusion by Dr Weldon EBL#1200ml. Total APOLINAR drain output: #330ml. Hgb: 11.4 post op from 14.3 pre-op. Pain reports pain moderately to well controlled. Mild nausea, no vomiting. -pain management per ortho -wound management per ortho -PT/OT as appropriate -DVT prophylaxis per ortho, SCDs -incentive spirometry -bowel regimen -Clinically stable (2) Acute blood loss anemia: EBL#1200ml. APOLINAR drain output: #330ml. H/H:10.4/29.6 today. Hgb 11.4 yesterday post op, was 14.3 pre-op. -Hemoglobin 9.6 today and electrolytes unremarkable (3) Leukocytosis: WBC: 18 No fevers/chills. No cough, SOB. Esqueda cath draining clear yellow urine. Had Decadron 12mg yesterday. May be secondary to steroids or physiologic response to surgery. -monitor CBC and monitor for any signs or symptoms of infection -White count has been normalized (4) HTN (hypertension): Hx HTN. Had Elevated BP post-op. Today BP improved at 127/66, 144/70 -Pain control as needed -continue carvedilol, lisinopril -will hold HCTZ and continue to monitor -Blood pressure is controlled (5) Sleep apnea: -May use own CPAP HS (6) History of prostate cancer: S/P prostatectomy DVT Prophylaxis -SCDs per ortho Disposition per primary team. Will need follow up with PCP - Erick Ortiz PA-C at [facility] in [place] for routine care Medically stable Subjective 07/31 The patient was seen and examined in the medical floor He has been complaining of some back pain He denies any other symptoms of chest pain, shortness of breath, abdominal pain, nausea and/or vomiting Review of Systems Review of Systems: All systems reviewed and are unremarkable except as noted below Constitutional: + weakness Musculoskeletal: + back pain Physical Exam Physical Exam: Sitting on a chair without any symptoms Constitutional: + morbidly obese ENMT: Mouth: + dentition abnormality, + dental bridge, + poor dentition and + loose teeth Mallampati Class: III Neck: normal visual inspection, trachea midline, + short neck, + thick neck and + facial hair; neck extension not limited Respiratory: normal respiratory effort Auscultation: lungs clear to auscultation bilaterally Cardiovascular: Rate/Rhythm: regular rate and regular rhythm Heart Sounds: no murmur Vessels: no carotid bruit Extremities: no edema Musculoskeletal: Spine: normal cervical ROM Neurologic: moves all extremities Motor/Sensory: no sensory deficit Psychiatric: Orientation: alert and oriented x 3 Lymphatic: no cervical or axillary lymphadenopathy Results & Data Vital Signs (Past 12 Hours) Vital Signs Temp Pulse Resp BP Pulse Ox 07/31/18 06:42 36.8 C 75 18 132/68 96 Laboratory Results Short CBC 07/31/18 Range/Units 05:17 WBC 8.88 (4.8-10.8) K/uL Hgb 9.6 L (14.0-18.0) g/dL Hct 28.2 L (42-52) % Plt Count 158 (130-400) K/uL BMP 07/31/18 05:17 Sodium 141 Potassium 4.0 Chloride 108 H Carbon Dioxide 30 BUN 16 Creatinine 0.82 Glucose 101 H Calcium 7.8 L Medications Administered Current Inpatient Medications Acetaminophen (Tylenol) 1,000 mg PO Q8H PRN PRN Reason: MILD Pain Rating 1,2,3 Stop: 08/28/18 14:43 Al Hydrox/Mg Hydrox/Simethicone (Maalox) 30 ml PO Q6H PRN PRN Reason: Dyspepsia Stop: 08/28/18 14:43 Last Admin: 07/30/18 10:14 Dose: 30 ml Documented by: Bisacodyl (Dulcolax) 10 mg [place] DAILY PRN PRN Reason: Constipation Stop: 08/28/18 14:43 Carvedilol (Coreg) 25 mg PO BID [place] Stop: 08/28/18 20:59 Last Admin: 07/31/18 07:37 Dose: 25 mg Documented by: Diphenhydramine HCl (Benadryl Capsule) 25 mg PO Q6H PRN PRN Reason: Allergic Rhinitis/Insomnia Stop: 08/28/18 14:43 Famotidine (Pepcid) 20 mg PO Q12H PRN PRN Reason: Dyspepsia Stop: 08/28/18 14:43 Last Admin: 07/30/18 08:06 Dose: 20 mg Documented by: Lisinopril/HCTZ (Prinzide 20/12.5mg) 1 tab PO BID [facility] Stop: 08/28/18 20:59 Hydromorphone HCl (Dilaudid) 0.5 - 1 mg IV Q3H PRN PRN Reason: Pain Stop: 08/12/18 14:43 Hydroxyzine HCl (Vistaril) 25 mg PO Q8H PRN PRN Reason: Anxiety Stop: 08/28/18 14:43 Acetaminophen (Ofirmev) 1,000 mg in 100 mls @ 400 mls/hr IV Q8 PRN PRN Reason: MILD Pain Rating 1,2,3 Stop: 08/28/18 14:43 Lorazepam (Ativan) 0.5 mg in 1 mls @ 0.5 mls/min IV Q8H PRN PRN Reason: Sedation/Anxiety Stop: 08/28/18 14:43 Promethazine HCl 12.5 mg/ (Sodium Chloride) 50.5 mls @ 204 mls/hr IV Q6H PRN PRN Reason: Nausea &/or Vomiting Stop: 08/28/18 14:43 Last Infusion: 07/29/18 21:15 Dose: Infused Documented by: Influenza Virus Vaccine Quadrival (Flu Vaccine, Do Not Administer) 1 ea N/A PRN PRN PRN Reason: Notification Stop: 08/28/18 14:43 Lisinopril (Zestril) 20 mg PO BID [facility] Stop: 08/28/18 20:59 Last Admin: 07/31/18 07:38 Dose: 20 mg Documented by: Lorazepam (Ativan) 0.5 mg PO Q8H PRN PRN Reason: Sedation/Anxiety Stop: 08/28/18 14:43 Last Admin: 07/31/18 12:23 Dose: 0.5 mg Documented by: Magnesium Hydroxide (Milk Of Magnesia) 30 ml PO DAILY PRN PRN Reason: Constipation Stop: 08/28/18 14:43 Metoclopramide HCl (Reglan) 10 mg IV Q6H PRN PRN Reason: Nausea &/or Vomiting Stop: 08/28/18 14:43 Multivitamins (Multivitamin Tab) 1 tab PO DAILY [place] Stop: 08/29/18 08:59 Last Admin: 07/31/18 07:37 Dose: 1 tab Documented by: Ondansetron HCl (Zofran) 4 mg IV Q6H PRN PRN Reason: Nausea &/or Vomiting Stop: 08/28/18 14:43 Last Admin: 07/29/18 19:05 Dose: 4 mg Documented by: Ondansetron HCl (Zofran) 4 mg PO Q6H PRN PRN Reason: Nausea Stop: 08/28/18 14:43 Oxycodone HCl (Roxicodone Immediate Rel) 5 - 10 mg PO Q4H PRN PRN Reason: Moderate-Severe Pain Stop: 08/12/18 14:43 Last Admin: 07/31/18 11:01 Dose: 10 mg Documented by: Pneumococcal Polyvalent Vaccine (Pneumococcal Vacc, Do Not Administer) 1 ea N/A PRN PRN PRN Reason: Notification Stop: 08/28/18 14:43 Polyethylene Glycol (Miralax Powder Packet) 17 gm PO Q6 [place] Stop: 08/29/18 05:59 Last Admin: 07/31/18 12:21 Dose: 17 gm Documented by: Senna/Docusate Sodium (Senokot S) 2 tab PO HS [place] Stop: 08/28/18 20:59 Last Admin: 07/30/18 21:02 Dose: 2 tab Documented by: Sodium Biphosphate/Sodium Phosphate (Fleet Enema) 132 ml [place] ONE PRN PRN Reason: Constipation Stop: 08/28/18 14:43 Tramadol HCl (Ultram) 50 - 100 mg PO Q4H PRN PRN Reason: Moderate-Severe pain Stop: 08/28/18 14:43 Vitamin B Complex (Vitamin B Complex) 1 tab PO DAILY [place] Stop: 08/29/18 08:59 Last Admin: 07/31/18 07:37 Dose: 1 tab Documented by:
[2018-07-31] MEDS: DOCUSATE SODIUM/SENNA 50/8.6MG TAB PO SCH (20:39)
[2018-08-01] MEDS: POLYETHYLENE (MIRALAX) 17 GM PACK PO SCH ×3 (01:30→12:23)
[2018-08-01] MEDS: OXYCODONE HCL IR 5 MG TAB (IMMEDIATE RELEASE) PO PRN ×2 (07:15→12:22)
[2018-08-01] MEDS: LISINOPRIL 20 MG TAB PO SCH (07:15)
[2018-08-01] MEDS: CARVEDILOL 25 MG TAB PO SCH (07:15)
[2018-08-01] MEDS: MULTIVITAMIN TAB PO SCH (07:16)
[2018-08-01] MEDS: VITAMIN B COMPLEX TAB PO SCH (07:16)
[2018-08-01 08:26] LABS: Basophils # (auto) 0.04 K/uL (0-0.2); Basophils % (auto) 0.5 %; Eosinophils # (auto) 0.63 K/uL (0-0.5); Eosinophils % (auto) 7.5 %; Hematocrit (blood only) 28.9 % (42-52); Hemoglobin 9.7 g/dL (14.0-18.0); Immature Granulocytes # (auto) 0.02 K/uL (0.00-0.02); Immature Granulocytes % (auto) 0.2 %; Lymphocytes # (auto) 1.79 K/uL (1.2-3.4); Lymphocytes % (auto) 21.4 %; Mean Corpuscular Volume 87.6 fL (80-100); Mean Platelet Volume 9.2 fL (7.4-10.4); Monocytes # (auto) 0.78 K/uL (0.11-0.59); Monocytes % (auto) 9.3 %; Neutrophils # (auto) 5.11 K/uL (1.4-6.5); Neutrophils % (auto) 61.1 %; Platelet Count 159 K/uL (130-400); RDW Coefficient of Variation 12.7 % (11.5-14.5); White Blood Count 8.37 K/uL (4.8-10.8)
--- NOTE | 2018-08-01 08:30 | XRay Report ---
XR chest 1V portable CLINICAL HISTORY: ELEVATED TEMPERATURE fever COMPARISON STUDY: 07/07/2017 FINDINGS: Mild bibasilar atelectasis. No focal infiltrate. Diaphragms are smooth. Lungs otherwise chantel ear clear. IMPRESSION: Minimal/mild bibasilar platelike atelectasis. The above report was generated using voice recognition software. It may contain grammatical, syntax or spelling errors. Electronically signed by: Stefan Mora M.D. 08/01/2018 8:28 AM
[2018-08-01 08:33] VITALS: BP 140/70; O2SAT 93
[2018-08-01 08:46] LABS: BUN Creatinine Ratio 15.3 (10-20); Calcium 8.1 mg/dl (8.5-10.1); Est GFR (African American) 88.8; Est GFR (Non-African American) 76.6; Potassium 3.9 mmol/L (3.5-5.1)
--- NOTE | 2018-08-01 08:48 | Discharge Summary ---
Date of Service August 01, 2018 Admission HPI Per Admitting Provider This is a 67-year-old male that is failed extensive course of nonoperative care and is here for surgical intervention. Principal Diagnosis Lumbar spinal stenosis with neurogenic claudication Discharge Data Allergies Allergy/AdvReac Type Severity Reaction Status Date / Time No Known Allergies Allergy Verified 07/29/18 06:19 Consultations 07/29/18 14:44 Consult Case Management - Discharge Planning Routine Consult Hospitalist Routine Procedures Performed Operation Date: 07/23/18 07:45 <No data on this case meets the specified criteria> Operation Date: 07/29/18 07:45 Actual Procedures p L2-S1 Decompression and Fusion, Interbody Fusion L5-S1, Spinal Cord Monitoring(Not Applicable) - Mir Weldon DO s L4-L5 Removal of Hardware(Not Applicable) - Mir Weldon DO Ordered Studies 07/29/18 07:45 FL fluoroscopy <1hr Routine FL lumbar spine 2-3V Routine Hospital Course (1) Spinal stenosis: Patient underwent lumbar decompression fusion tolerated as well as taken to the orthopedic floor postoperative. Postop day 1 he was up and ambulating well. Progressive postop day #2. APOLINAR drain decreasing probably. Subsequently postop day #3 he was discharged home. Discharge orders and instructions can be found in chart for further review. Total Time Total Time Spent Total Time Spent (In Minutes): 20 minutes Discharge Plan Discharge Items Patient Disposition: Home - Self-Care Reason For Visit: LUMBAR SPINAL STENOSIS W/NEUROGENIC CLAUDICATION Discharge Diagnosis: lumbar stenosis Discharge Goals: Decrease discomfort Activity: Per 'Additional Instructions' section Non-emergency contact: Primary Care Provider Call non-emergency contact if: you have any medication questions Follow-up/Referrals: Erick Ortiz PA-C [Primary Care Provider] - Diet: Regular Addtl Provider Instructions: ACTIVITY RECOMMENDATIONS: SELF CARE INSTRUCTIONS AFTER THORACIC/LUMBAR FUSIONS 1. You may walk to your tolerance. It is good exercise for your legs and back. Expect some back and intermittent leg aches and pains. 2. You may perform "counter-top" level activities (make a sandwich, chantell with a project, etc.). 3. No bending or lifting of more than 10 pounds or back twisting of any nature (roll like a log when turning in bed). 4. You may ride in a car for 20-30 minutes at a time. No driving until after your first visit with your doctor. 5. Frequent changes of position and restricting sitting to 30 minutes at a time will help limit the amount of back spasms and stiffness you may experience. 6. You may discontinue the use of ambulatory aids (cane, crutches, etc.) once your strength and confidence allow. 7. You may printing services coordinator the shower and let water strike your incision when you arrive home at least once daily. Do not take a tub bath, sit in a hot tub or go into a swimming pool until after your first recheck in the office. SPECIAL CARE INSTRUCTIONS: VERY IMPORTANT TO READ AND REVIEW A. Your surgical incision has been closed with a cosmetic suture under the skin that will dissolve in about 6 weeks. In 14 days, you can use a pair of clean scissors and cut the suture that is left outside of the skin at the ends of your incision. 1. The small skin tapes can be removed 7 days after surgery if they have not fallen off by that point. 2. You may keep the wound open to air as much as possible to promote healing after post-op day number 5 unless told otherwise by your doctor. 3. If you think the wound looks like it is becoming infected (redness or worsening drainage) and/or you are experiencing fever, chill or worsening back pain and muscle spasms, contact the office so that we may evaluate you as soon as possible. B. Complications are uncommon, but please contact us if you have any signs or symptoms of: 1. wound infection (fever higher than 102.5 degrees F, redness, separation of wound, drainage, or increasing pain from the incision) 2. blood clots in legs (pain, swelling, redness and warmth in legs) 3. urinary tract infection (fever higher than 102.5 degrees F, burning upon urination or increased frequency of urination) 4. nerve problems (inability to walk on your toes or heels, numbness, loss of bowel or bladder control) 5. any other symptoms that concern you C. Please call the office at if you have any concerns or questions about your operation or recovery. D. No smoking! Smoking drastically decreases the chance of a solid fusion. E. Do not take any anti-inflammatory medications (Indocin, Advil, Motrin, Aspirin, Naprosyn, etc.) as these may inhibit the chance of a solid fusion. Tylenol is okay to take for pain. MANAGING PAIN AFTER SPINAL SURGERY 1. Narcotic medication is intended for short-term use and will be provided for surgical pain. Surgical pain usually lasts for a period of 4-6 weeks. Narcotic medication includes Percocet, Vicodin, Darvocet, Tylenol #3 or Lortab. 2. Longer-term pain is more appropriately treated with non-narcotic medication such as Tylenol ES. 3. Muscle spasm is not appropriately treated with narcotics. Muscle relaxers such as Soma, Flexeril or Skelaxin can be used along with Tylenol ES. 4. Remember that we all live with some "aches and pains". This is not unusual or uncommon after an injury or as we get older. a. Back pain is expected and may include muscle spasms for 4 to 6 weeks after surgery. The pain should gradually improve. If the pain worsens for no apparent reason, please contact the office. b. Intermittent leg pain may also be experienced and should not be concerned about unless it worsens for no apparent reason. If so, please contact the office. 5. We will provide appropriate medication within the normal guidelines of their prescribed use. We will also be very cautious and aware of potential abuse and extended duration of patients' medication needs. a. Pain medications are for your comfort and to assist with sleep and rest so that the tissue can heal. They are not provided in order to return to normal activity and should not be used through the day. To do so or worsening pain at night can result from ongoing tissue damage and development of tolerance to the prescribed medicine. 6. Please allow 2-3 days to process refills. Prescriptions will not be mailed but must be picked up at the office. FOLLOW UP VISIT: Keep your scheduled follow-up appointment. Any questions, please call the office at . Prescriptions: New tramadol 50 mg Tablet 50 mg PO Q4H PRN (Reason: Pain, Moderate) Qty: 30 RF: 0 oxycodone 5 mg Tablet 5 mg PO Q4H PRN (Reason: Pain, Severe) Qty: 30 RF: 0 Continued carvedilol 25 mg Tablet 25 mg PO BID RF: 0 lisinopril-hydrochlorothiazide 20-12.5 mg Tablet 1 tab PO BID RF: 0 fluticasone propionate [Flonase Allergy Relief] 50 mcg/actuation [place],Suspension 1 - 2 spray INTRANASAL DAILY RF: 0 multivitamin [Multiple Vitamins] Tablet 1 tab PO DAILY RF: 0 vitamin B complex Capsule 1 cap PO DAILY RF: 0 Mark Red 1 - 2 tab PO DAILY RF: 0 Stand-Alone Forms: [facility] Discharge Orders: Discharge Order (Routine); Ordered 08/01/18 Ordered By: Mir Weldon Admission Data Admit Date/Time: 07/29/18 12:02 Attending Provider: Mir Weldon Admit Provider: Mir Weldon Primary Care Provider: Erick Ortiz Other Providers: Monse Neal Service: Surgical Services
[2018-08-01 08:53] LABS: Mean Corpuscular Hgb Conc 33.6 g/dL (32-36)
[2018-08-01 08:58] LABS: Appearance Urine Clear (Clear); Bilirubin Urine Negative (Negative); Blood Urine Negative (Negative); Color Urine Yellow; Glucose Urine UA Trace (Negative); Ketones Urine Negative (Negative); Leukocyte Esterase Urine Negative (Negative); Nitrite Urine Negative (Negative); Protein Urine Negative (Negative); Specific Gravity Urine 1.025 (1.000-1.030); Urobilinogen Urine Negative (Negative); pH Urine 5.5 (4.5-7.5)
[2018-08-01] MEDS: LORazepam 0.5 MG TAB PO PRN (09:17)
[2018-08-01 10:07] VITALS: TEMP 98.1
[2018-08-01 10:55] VITALS: PULSE 75
== END 2018-08-01 13:05 | disposition home or self-care (01) | DRG 454 ==
LOC: ASU 06:00 → 3E 12:02